=== PATIENT | female | born 1995 | race Caucasian/White ===

== ENCOUNTER 2017-04-03 11:22 | Emergency (ER) | payer OTHER, MEDICAID ==
[2017-04-03 11:29] VITALS: BP 112/67; PULSE 79; RESP 18; TEMP 98.6; O2SAT 99
--- NOTE | 2017-04-03 11:36 | EDPHY ---
H & P Stated Complaint: Stubbed L big toe on Wednesday Time Seen by Provider: 04/03/17 11:35 HPI/ROS: HPI: This is a 21-year-old female who presents with Chief Complaint: Stubbed Left big toe on Wednesday Location: Left lateral big toe Quality: Pain Duration: 3 days Signs and Symptoms: No bleeding, no radiation, no numbness, no weakness, no tingling, + decreased range of motion Timing: Gradual onset, worse with weight-bearing Severity: Moderate Context: Patient reports that she was cleaning the floor and accidentally hit her left big toe on bucket filled with water. She immediately felt pain but was gradually able to walk on it. Pain has persisted so she came to the ER to evaluate for fracture. Modifying Factors: No lwfr-ubw-ehtixud medications have been tried Comment: ROS: Constitutional: No fever, no chills, no weight loss Eyes: No blurred vision Respiratory: No shortness of breath, no cough Cardiovascular: No chest pain Gastrointestinal: No nausea, no vomiting no diarrhea Genitourinary: No dysuria Extremities: No myalgias Neurologic: No weakness, no numbness Skin: No rashes Hematologic: No bruising, no bleeding Source: Patient Exam Limitations: No limitations - Personal History LMP (Females 10-55): Extended Cycle BCP/Inj Current Tetanus Diphtheria and Acellular Pertussis (TDAP): Unsure - Medical/Surgical History PMH: Denies surgical history. Hx Asthma: No Hx Chronic Respiratory Disease: No Hx Diabetes: No Hx Cardiac Disease: No Hx Renal Disease: No Hx Cirrhosis: No Hx Alcoholism: No Hx HIV/AIDS: No Hx Splenectomy or Spleen Trauma: No Other PMH: healthy by hx - Social History Smoking Status: Never smoked - Physical Exam Exam: CONSTITUTIONAL: Well-appearing young adult white female, awake and alert, no obvious distress HEENT: Atraumatic and normocephalic, PERRL, EOMI. Tympanic membranes clear. . Oropharynx clear, no exudate and moist pink mucosa. Airway patent. No lymphadenopathy. No meningismus. Cardiovascular: Normal S1/S2, regular rate, regular rhythm, without murmur rub or gallop. PULMONARY/CHEST: Symmetrical and nontender. Clear to auscultation bilaterally Good air movement. No accessory muscle usage. ABDOMEN: Soft, nondistended, nontender, no rebound, no guarding, no peritoneal signs, no masses or organomegaly. No CVAT. EXTREMITIES: 2/2 pulses, left lateral great toe DIP joint shows mild erythema; flexion and extension are intact at the joints. no deformities, no clubbing, no cyanosis or edema. NEUROLOGICAL: no focal neuro deficits. GCS 15. SKIN: Warm and dry, no erythema. no rash. Good capillary refill. Constitutional: Initial Vital Signs Temperature (C) 37 C 04/03/17 11:24 Heart Rate 79 04/03/17 11:24 Respiratory Rate 18 04/03/17 11:24 Blood Pressure 112/67 04/03/17 11:24 O2 Sat (%) 99 04/03/17 11:24 O2 Delivery Mode Room Air Allergies/Adverse Reactions: hydrocodone Allergy (Mild, Verified 04/03/17 11:29) nausea Home Medications: Medication Instructions Recorded Control Pills 04/03/17 Cephalexin [Keflex (*)] 250 mg PO 04/03/17 Medical Decision Making - Diagnostics Imaging Results: Imaging Impressions Toe X-Ray 04/03/17 11:43 Impression: 1. No definite acute fracture. 2. Consider additional imaging if symptoms persist, if clinically indicated. ED Course/Re-evaluation: X-ray ordered Foot x-ray reviewed by myself and shows no acute fracture/dislocation No signs of neurovascular compromise/tenting of skin/compartment syndrome/ extremities and joints examined above and below area of concern and are neurovascularly intact. Chong tape for comfort, advised supportive care, RICE Differential Diagnosis: Differential diagnosis includes fracture, dislocation, contusion, sprain. Departure - Departure Disposition: Home, Routine, Self-Care Clinical Impression: Contusion of toe of left foot Qualifiers: Encounter type: initial encounter Toe: great toe Damage to nail status: without damage Qualified Code(s): S90.112A - Contusion of left great toe without damage to nail, initial encounter Condition: Good Instructions: Foot Contusion (ED) Additional Instructions: Keep the chong tape in place until pain free. Take ibuprofen 600-800 mg every 6-8 hours with food as needed for pain and inflammation. Apply ice for 30 minutes at a time; 2-3 times per day for the next 1-2 days. Follow up with Podiatry in 7-10 days if symptoms persist or worsen. The x-rays obtained in the emergency department today demonstrate no evidence of an obvious fracture. Sometimes fractures are not obvious on the initial set of x-rays performed in the ED. For this reason, you should have repeat x-rays performed in 7-10 days if you are having any pain exclude the possibility of an occult fracture. Referrals: Radhames Black DPM [Doctor of Podiatric Medicine] - As per Instructions
== END 2017-04-03 12:15 | disposition home or self-care (01) ==
DX: S90.112A Contusion of left great toe without damage to nail, initial encounter (principal); W22.8XXA Striking against or struck by other objects, initial encounter; Y99.0 Civilian activity done for income or pay; Y93.E5 Activity, floor mopping and cleaning